=== PATIENT | male | born 2000 | race Caucasian/White ===

== ENCOUNTER 2018-10-06 20:43 | Emergency (ER) | payer BC ==
--- NOTE | 2018-10-06 21:00 | EDPHY ---
H & P Stated Complaint: left testicular pain possible torsion Time Seen by Provider: 10/06/18 20:53 HPI/ROS: CHIEF COMPLAINT: Possible testicular torsion HISTORY OF PRESENT ILLNESS: 18-year-old male otherwise healthy arrives via private vehicle. Describes being in the shower approximately 30 min prior to arrival and noticed that his left testicle suddenly became high-riding in turned "black and blue" and became painful. He decided come to the ER and while EN route to the hospital he notes that his testicle now feels normal and is no longer discolored. He denies trauma to his testicle, denies straddle injury, denies abdominal pain, denies back or flank pain. He does note several years ago this happened previously. He is not seek medical attention at that time. Last oral intake 5:00 p.m. PRIMARY CARE PROVIDER: REVIEW OF SYSTEMS: 10 systems reviewed and negative with the exception of the elements mentioned in the history of present illness PAST MEDICAL & SURGICAL HISTORY: No pertinent medical or surgical history SOCIAL HISTORY: Student PHYSICAL EXAM (Prior to examination, patient consented to physical exam, hands were washed and my usual and customary physical exam procedures followed) 1) GENERAL: Well-developed, well-nourished, alert and oriented. Appears to be in no acute distress. Observed ambulating stable steady gait, smiling smoke shakes my hand appears comfortable. 2) HEAD: Normocephalic, atraumatic 3) HEENT: Pupils equal, round, reactive to light bilaterally. Sclera anicteric. 4) NECK: Full range of motion, no meningeal signs. 5) LUNGS: Clear auscultation bilaterally, no wheezes, no rhonchi, no retractions. 6) HEART: Regular rate and rhythm, no murmur, no heave, no gallop. 7) ABDOMEN: [No guarding, no rebound, no focal tenderness 8) MUSCULOSKELETAL: Moving all extremities, no focal areas of tenderness, no obvious trauma. No peripheral edema or discoloration. 9) BACK: No CVA tenderness, no midline vertebral tenderness, no fluctuance, no step-off, no obvious trauma, no visual or palpable abnormality. 10) SKIN: No rash, no petechiae. 11) : Circumcised, no urethral discharge, bilateral testicles are nontender, non high-riding, no skin changes to the scrotum, bilateral cremasteric reflex present and brisk. DIFFERENTIAL DIAGNOSIS: In no particular order including but not limited to acute testicular torsion, intermittent torsion, epididymitis, varicocele - Personal History Current Tetanus Diphtheria and Acellular Pertussis (TDAP): Yes - Medical/Surgical History Hx Asthma: No Hx Chronic Respiratory Disease: No Hx Diabetes: No Hx Cardiac Disease: No Hx Renal Disease: No Hx Cirrhosis: No Hx Alcoholism: No Hx HIV/AIDS: No Hx Splenectomy or Spleen Trauma: No Other PMH: none - Social History Smoking Status: Never smoked Constitutional: Initial Vital Signs Temperature (C) 37.2 C 10/06/18 20:47 Heart Rate 82 10/06/18 20:47 Respiratory Rate 16 10/06/18 20:47 Blood Pressure 131/84 H 10/06/18 20:47 O2 Sat (%) 93 10/06/18 20:47 O2 Delivery Mode Room Air Allergies/Adverse Reactions: No Known Allergies Allergy (Unverified 10/06/18 20:50) Home Medications: Medication Instructions Recorded NK [No Known Home Meds] 10/06/18 Medical Decision Making - Diagnostics Imaging Results: Imaging Impressions Testicular Ultrasound 10/06/18 20:54 Impression: 1. Normal testes. No evidence of torsion or mass. 2. Left varicocele and small left hydrocele. Findings discussed with Emergency Department Physician Hogshead Inspector, Jah Worley PA-C, on October 06, 2018 at 2151. Images reviewed myself ED Course/Re-evaluation: 9:00 p.m.: Stat ultrasound has been ordered. At this time I think that acute testicular torsion is less than likely however given the patient's pre-hospital history I think this is concerning for intermittent torsion. Will plan on ultrasonographic evaluation consultation with Urology. Care of patient under supervision of secondary supervising physician Dr Coats with whom I discussed case at this time 9:46 p.m. : Ultrasound of the testicle is negative for torsion. Patient re- evaluated at this time. He remains asymptomatic. He is smiling. 9:59 p.m.: Phone consultation with Urology who recommends no further intervention at this time the patient is asymptomatic and has normal flow on ultrasound. We specifically discussed possibility of intermittent torsion. I discussed this with the patient as well and stressed the importance of seeking immediate medical attention if he develops return of symptoms. Patient feels comfortable with this plan - Data Points Laboratory Results: 10/06/18 10/06/18 21:30 21:30 Urine Color YELLOW Urine Appearance CLEAR Urine pH 7.0 (5.0-7.5) Ur Specific [place] 1.025 (1.002-1.030) Urine Protein NEGATIVE (NEGATIVE) Urine Ketones NEGATIVE (NEGATIVE) Urine Blood NEGATIVE (NEGATIVE) Urine Nitrate NEGATIVE (NEGATIVE) Urine Bilirubin NEGATIVE (NEGATIVE) Urine Urobilinogen NEGATIVE EU EU (0.2-1.0) Ur Leukocyte Esterase NEGATIVE (NEGATIVE) Urine RBC 1-3 /hpf /hpf (0-3) Urine WBC 1-3 /hpf /hpf (0-3) Ur Epithelial Cells NONE SEEN /lpf /lpf (NONE-1+) Urine Mucus TRACE /lpf /lpf (NONE-1+) Urine Glucose NEGATIVE (NEGATIVE) C.trachomatis RNA (TMA) Pending N.gonorrhoeae RNA (TMA) Pending Departure - Departure Disposition: Home, Routine, Self-Care Clinical Impression: Testicle pain Condition: Good Instructions: Testicle Pain (ED) Additional Instructions: If you develop testicle pain seek immediate medical attention. Recommend you wear briefs or other type of supportive undergarments. Recommend you follow up with urologist as directed in your instructions. Referrals: Gallito Walker MD [Medical Doctor] - 2-3 days, call for appt.
[2018-10-06 22:10] VITALS: BP 128/72
[2018-10-07 11:08] LABS: GC AMPLIFICATION GENPROBE NEGATIVE (NEGATIVE)
== END 2018-10-06 22:10 | disposition home or self-care (01) ==
DX: N43.3 Hydrocele, unspecified (principal); I86.1 Scrotal varices